=== PATIENT | female | born 1950 ===

== ENCOUNTER 2019-06-22 14:31 | Emergency (ER) | payer OTHER ==
[~2019-06-22] VITALS: Ht 152.4 cm; Wt 89.8 kg
[2019-06-22] MEDS ORDERED: COZAAR100 MG (14:39)
[2019-06-22] MEDS ORDERED: METOPROLOL SUCC50 MG (14:40)
== END 2019-06-22 17:26 | disposition home or self-care (01) ==
LOC: ER 14:31
DX: S00.83XA Contusion of other part of head, initial encounter (principal); W18.09XA Striking against other object with subsequent fall, initial encounter; Y93.89 Activity, other specified; Y92.018 Other place in single-family (private) house as the place of occurrence of the external cause; Y99.8 Other external cause status